=== PATIENT | female | born 1935 | race Caucasian/White ===

== ENCOUNTER 2018-12-29 15:02 | Inpatient (IN) | payer OTHER ==
[~2018-12-29] VITALS: Ht 152.4 cm; Wt 66.2 kg
[2018-12-29] MEDS ORDERED: SOD CHLORIDE 0.9% 0 ML IV ONE (16:30)
[2018-12-29] MEDS ORDERED: CALC-662 PO (17:02)
[2018-12-29] MEDS ORDERED: GABA100C14 PO (17:03)
[2018-12-29] MEDS ORDERED: AMLO5TAB4 PO (17:03)
[2018-12-29] MEDS ORDERED: METF500T24 PO (17:04)
[2018-12-29] MEDS ORDERED: LOSA100T15 PO (17:04)
[2018-12-29] MEDS ORDERED: SOD CHLORIDE 0.9% 1,000 ML IV SCH (17:15)
[2018-12-29] MEDS ORDERED: POTASSIUM CHLORIDE (SR) 20 MEQ TAB PO STA (17:22)
[2018-12-29] MEDS ORDERED: NACL 0.9% 3 ML SYG IV SCH (17:30)
[2018-12-29] MEDS ORDERED: ONDANSETRON 4 MG INJ IV PRN (17:30)
[2018-12-29] MEDS ORDERED: ACETAMINOPHEN 325 MG TAB PO PRN (17:30)
[2018-12-29] MEDS ORDERED: LIDOCAINE/MYLANTA 40 ML BTL PO ONE (17:30)
--- NOTE | 2018-12-29 17:40 | HP ---
Date/Time of Note Date/Time of Note DATE: 12/29/18 TIME: 17:40 Assessment/Plan VTE Prophylaxis Pharmacological prophylaxis: other Lines/Catheters IV Catheter Type (from Nrsg): Saline Lock Assessment/Plan Hospital Course Patient is a female with a past medical history significant for hypertension, diabetes mellitus and peripheral neuropathy who presents to [facility] after being sent by her outpatient physician for severe anemia. Patient states that she has had this burning sensation in her shoulders bilaterally as well as her stomach for approximately 8 months. Her primary care doctor diagnosed with peripheral neuropathy secondary to diabetes mellitus and is treating her with gabapentin for the symptoms. Patient states that the symptoms have improved a little bit but has still not fully resolved. Otherwise patient also states that for the past 8 months she has felt generally weak. As far as acute symptoms that are none, patient states that she has been feeling this current state for the past 8 months. Patient denies acute chest pain, shortness of breath, headache, abdominal pain, leg pain. But she does state that she has this burning sensation in her abdomen as well as her shoulders. Objective Physical exam General: Patient is laying in bed and answers questions appropriately Mentation: Patient is alert and oriented 4, Head: Normocephalic atraumatic Eyes: EOMI, pupils reactive to light Neck: Supple, nontender, midline Respiratory: Clear to auscultation bilaterally Cardiovascular: regular rate, no obvious murmurs Gastrointestinal: non-tender to palpation, bowel sounds heard. Neurological: Moves all extremities spontaneously Skin: No new skin lesions Assessment and plan Symptomatic anemia -Severe anemia, getting transfused in the ED -We will hydrate slightly as patient likely not eating very well due to generalized weakness, very mild -Iron panel, ferritin, reticulocyte pending -Patient states no black or bloody stool, however will obtain fecal occult, if positive will consult GI, patient has no history of colonoscopy -Patient's last blood work was done a long time ago, beyond 8 months so unsure when or what her last hemoglobin was, it would be nice to speak to her primary care physician however this is beyond office hours on a Tuesday night, will need to follow-up with patient's physician on Tuesday morning if available. -Monitor Hypertension -Continue home meds Diabetes mellitus -Insulin 1 house Shoulder and abdominal burning -Worked up by her primary care physician, on gabapentin, has been going on for the past 8 months, continue gabapentin for now,- -Patient states after starting gabapentin it has helped a little bit but has not relieved all the burning sensation Electrolyte derangement -Replete as needed Disposition -We will transfuse, monitor patient for possible GI bleed and discharge when safe. Anticipate a multi-day stay as we may or may not need to transfuse multiple times given severely low hemoglobin. Result Diagram: 12/29/18 1642 Results 24hrs Laboratory Tests Test 12/29/18 16:42 White Blood Count 5.5 Red Blood Count 3.29 L Hemoglobin 5.6 *L Hematocrit 21.2 L Mean Corpuscular Volume 64.4 L Mean Corpuscular Hemoglobin 17.0 L Mean Corpuscular Hemoglobin Concent 26.4 L Red Cell Distribution Width 21.0 H Platelet Count 253 Mean Platelet Volume 8.1 Immature Granulocytes % 0.400 Neutrophils % Lymphocytes % Monocytes % Eosinophils % Basophils % Nucleated Red Blood Cells % 0.0 Immature Granulocytes # 0.020 Neutrophils # Lymphocytes # Monocytes # Eosinophils # Basophils # Nucleated Red Blood Cells # Pathologist Review (Hematology) YES Prothrombin Time 13.3 Prothrombin Time Ratio 1.0 INR International Normalized Ratio 1.00 Activated Partial Thromboplast Time 24.7 Sodium Level 138 Potassium Level 3.4 L Chloride Level 98 Carbon Dioxide Level 30 Anion Gap 10 Blood Urea Nitrogen 13 Creatinine 0.60 Est Glomerular Filtrat Rate mL/min Glucose Level 107 Calcium Level 9.1 Iron Level < 10 L Total Iron Binding Capacity Pending Percent Iron Saturation Pending Total Bilirubin 0.4 Direct Bilirubin 0.00 Indirect Bilirubin 0.4 Aspartate Amino Transf (AST/SGOT) 26 Alanine Aminotransferase (ALT/SGPT) 31 Alkaline Phosphatase 71 Total Protein 7.6 Albumin 4.1 Globulin 3.50 H Albumin/Globulin Ratio 1.17 HPI/ROS Admit Date/Time Admit Date/Time PMH/Family/Social Past Medical History Medications Current Medications Sodium Chloride 1,000 ml @ 50 mls/hr Q20H IV ; Start 12/29/18 at 17:15; Stop 12/30/18 at 13:14; Status UNV IV Flush (NS 3 ml) 3 ml PER PROTOCOL IV ; Start 12/29/18 at 17:30; Status UNV Ondansetron HCl (Zofran Inj) 4 mg Q6H PRN IV NAUSEA/VOMITING; Start 12/29/18 at 17:30; Status UNV Acetaminophen (Tylenol Tab) 650 mg Q6H PRN PO .PAIN 1-3 OR TEMP; Start 12/29/18 at 17:30; Status UNV Acetaminophen/ Hydrocodone Bitart ([place] (5/325)) 1 tab Q6H PRN PO .PAIN 4-6; Start 12/29/18 at 17:30; Status UNV Amlodipine Besylate (Norvasc) 5 mg DAILY PO ; Start 12/30/18 at 09:00; Status UNV Gabapentin (Neurontin) 100 mg TID PO ; Start 12/29/18 at 21:00; Status UNV Losartan Potassium (Cozaar) 100 mg DAILY PO ; Start 12/30/18 at 09:00; Status UNV Coded Allergies: No Known Allergy (Unverified , 12/29/18) Social History Smoking Status: Never smoker Exam/Review of Systems Vital Signs Vitals Vital Signs Date Temp Pulse Resp B/P (MAP) Pulse Ox O2 O2 Flow FiO2 Time Delivery Rate 12/29/18 71 20 149/61 97 Room Air 16:23 (90) 12/29/18 98.7 15:09 RICHARD ABDULLAHI Dec 29, 2018 17:40
[2018-12-29] MEDS: INSULIN ASPART [NOVOLOG] 3 ML PEN SC SCH ×2 (18:00→22:35)
[2018-12-29] MEDS ORDERED: GLUCOSE GEL 15 GRAM TUBE BUCCAL PRN (18:00)
[2018-12-29] MEDS ORDERED: GLUCAGON 1 MG INJ IM PRN (18:00)
[2018-12-29] MEDS ORDERED: DEXTROSE 50% 50 ML SYRINGE IV PRN ×2 (18:00)
[2018-12-29] MEDS ORDERED: GLUCOSE GEL 15 GRAM TUBE PO PRN ×2 (18:00)
--- NOTE | 2018-12-29 18:17 | ERD ---
ER Documentation Chief Complaint Chief Complaint hgb 6.2 sent for blood transfusion HPI This is an 83-year-old female with a prior history of hypertension and diabetes, who presents for evaluation of anemia with a hemoglobin of 6.2. The patient has endorsed generalized weakness for about the last week, she was sent in from an outside clinic. Patient has not had any syncope, chest pain or shortness of breath. She denies any rectal or vaginal bleeding. Her symptoms are intermittent and not alleviated or aggravated by anything. ROS All systems reviewed and are negative except as per history of present illness. Medications Home Meds Reported Medications Metformin Hcl* (Metformin Hcl*) 500 Mg Tablet, 500 MG PO WITH BREAKFAST DINNE, #60 TAB 12/29/18 Losartan Potassium* (Losartan Potassium*) 100 Mg Tablet, 100 MG PO DAILY, TAB 12/29/18 Gabapentin* (Gabapentin*) 100 Mg Capsule, 100 MG PO TID, #90 CAP 12/29/18 Amlodipine Besylate* (Norvasc*) 5 Mg Tablet, 5 MG PO DAILY, TAB 12/29/18 Calcium Carbonate-Vitamin D3 (Calcium 500 + D Tablet) 1 Each Tablet, 1 TAB PO DAILY, TAB 12/29/18 Allergies Allergies: Coded Allergies: No Known Allergy (Unverified , 12/29/18) PMhx/Soc History of Surgery: No Anesthesia Reaction: No Hx Neurological Disorder: No Hx Respiratory Disorders: No Hx Cardiac Disorders: No Hx Psychiatric Problems: No Hx Miscellaneous Medical Probl: Yes (Hx anemia) Hx Alcohol Use: No Hx Substance Use: No Hx Tobacco Use: No Smoking Status: Never smoker Physical Exam Vitals Vital Signs Date Temp Pulse Resp B/P (MAP) Pulse Ox O2 O2 Flow FiO2 Time Delivery Rate 12/29/18 71 20 149/61 97 Room Air 16:23 (90) 12/29/18 98.7 78 20 161/70 96 15:09 (100) Physical Exam Const: Well-appearing, well-developed well-nourished. Head: Atraumatic Eyes: Normal Conjunctiva ENT: Normal External Ears, Nose and Mouth. Neck: Full range of motion. No meningismus. Resp: Clear to auscultation bilaterally Cardio: Regular rate and rhythm, no murmurs Abd: Soft, non tender, non distended. Normal bowel sounds Skin: No petechiae or rashes Back: No midline or flank tenderness Ext: No cyanosis, or edema Neur: Awake and alert Psych: Normal Mood and Affect Result Diagram: 12/30/18 0550 12/30/18 0550 Results 24 hrs Laboratory Tests Test 12/29/18 09:13 12/29/18 16:42 Urine Color YELLOW Urine Clarity CLOUDY Urine pH 9.0 Urine Specific [place] 1.008 Urine Ketones NEGATIVE mg/dL Urine Nitrite NEGATIVE mg/dL Urine Bilirubin NEGATIVE mg/dL Urine Urobilinogen NEGATIVE mg/dL Urine Leukocyte Esterase 2+ Andre/ul Urine Microscopic RBC 6 /HPF Urine Microscopic WBC 9 /HPF Urine Bacteria FEW /HPF Urine Hemoglobin NEGATIVE mg/dL Urine Glucose NEGATIVE mg/dL Urine Total Protein NEGATIVE mg/dl Stool Occult Blood NEGATIVE White Blood Count 5.5 10^3/ul Red Blood Count 3.29 10^6/ul Hemoglobin 5.6 g/dl Hematocrit 21.2 % Mean Corpuscular Volume 64.4 fl Mean Corpuscular Hemoglobin 17.0 pg Mean Corpuscular Hemoglobin Concent 26.4 g/dl Red Cell Distribution Width 21.0 % Platelet Count 253 10^3/UL Mean Platelet Volume 8.1 fl Immature Granulocytes % 0.400 % Neutrophils % % Segmented Neutrophils % (Manual) 50 % Lymphocytes % % Lymphocytes % (Manual) 35 % Reactive Lymphocytes % (Manual) 1 % Monocytes % % Monocytes % (Manual) 6 % Eosinophils % % Eosinophils % (Manual) 3 % Basophils % % Basophils % (Manual) 4 % Myelocytes % (Manual) 1 % Nucleated Red Blood Cells % 0.0 /100WBC Immature Granulocytes # 0.020 10^3/ul Neutrophils # 10^3/ul Lymphocytes (Manual) 1.9 10^3/ul Lymphocytes # 10^3/ul Reactive Lymphocytes # 0.0 10^3/ul Monocytes # 10^3/ul Monocytes # (Manual) 0.3 10^3/ul Eosinophils # 10^3/ul Basophils # 10^3/ul Basophils # (Manual) 0.2 10^3/ul Myelocytes # 0.0 10^3/ul Nucleated Red Blood Cells # 10^3/ul Pathologist Review (Hematology) YES Platelet Estimate NORMAL Giant Platelets 2 % Poikilocytosis 2+ Anisocytosis 2+ Microcytosis 2+ Absolute Reticulocyte Count 0.091 X10^6 Percent Reticulocyte Count 2.8 % Prothrombin Time 13.3 Sec Prothrombin Time Ratio 1.0 INR International Normalized Ratio 1.00 Activated Partial Thromboplast Time 24.7 Sec Sodium Level 138 mmol/L Potassium Level 3.4 mmol/L Chloride Level 98 mmol/L Carbon Dioxide Level 30 mmol/L Anion Gap 10 Blood Urea Nitrogen 13 mg/dl Creatinine 0.60 mg/dl Est Glomerular Filtrat Rate mL/min mL/min Glucose Level 107 mg/dl Calcium Level 9.1 mg/dl Iron Level < 10 ug/dl Total Iron Binding Capacity 522 ug/dl Percent Iron Saturation % SAT Ferritin 7.0 ng/ml Total Bilirubin 0.4 mg/dl Direct Bilirubin 0.00 mg/dl Indirect Bilirubin 0.4 mg/dl Aspartate Amino Transf (AST/SGOT) 26 IU/L Alanine Aminotransferase (ALT/SGPT) 31 IU/L Alkaline Phosphatase 71 IU/L Troponin I < 0.012 ng/ml Total Protein 7.6 g/dl Albumin 4.1 g/dl Globulin 3.50 g/dl Albumin/Globulin Ratio 1.17 Current Medications Medications Dose Sig/Lenin Start Time Status Last (Trade) Ordered Route PRN Stop Time Admin Dose Reason Admin Sodium 0 ml @ 0 Q0M ONCE 12/29/18 DC Chloride mls/hr IV 16:30 12/29/18 16:54 Sodium 1,000 ml @ Q20H IV 12/29/18 DC 12/30/18 Chloride 50 mls/hr 17:15 04:11 12/30/18 13:14 IV Flush 3 ml PER 12/29/18 (NS 3 ml) PROTOCOL IV 17:30 Ondansetron 4 mg Q6H PRN 12/29/18 HCl (Zofran IV 17:30 Inj) NAUSEA/VOMITI NG 650 mg Q6H PRN 12/29/18 12/30/18 Acetaminophen PO .PAIN 1-3 17:30 08:46 (Tylenol OR TEMP Tab) 1 tab Q6H PRN 12/29/18 12/29/18 Acetaminophen PO .PAIN 4-6 17:30 20:35 / Hydrocodone Bitart ([place] (5/325)) 40 ml ONCE ONCE 12/29/18 DC 12/29/18 Miscellaneous PO 17:30 19:55 Medication 12/29/18 17:31 (Gi Cocktail (2)) Potassium 40 meq ONCE STAT 12/29/18 DC 12/29/18 Chloride PO 17:22 19:55 (Klor-Con 20) 12/29/18 17:29 Procedures/MDM This is a 83-year-old female presents for evaluation of severe anemia. On exam, patient had no cardiopulmonary symptoms, her hemoglobin was noted to be 5.6, that she required emergent transfusion. She otherwise had no active bleeding, and no other complaints. Lab work did not show any significant leukocytosis, and any evidence of anion gap acidosis. Accepting Care Team: Current data and ongoing care discussed. Primary: Louis Outstanding Data: none EKG: Rate/Rhythm: Normal Sinus Rhythm QRS, ST, T-waves: No changes consistent w/ acute ischemia Impression: No evidence of ischemia or arrhythmia Departure Diagnosis: Primary Impression: Anemia Anemia type: unspecified type Qualified Codes: D64.9 - Anemia, unspecified Condition: Stable RICHARD RICO MD Dec 29, 2018 18:17
[2018-12-29] MEDS: PANTOPRAZOLE (EC) 40 MG TAB PO SCH (19:55)
[2018-12-29] MEDS: HYDROCODONE/APAP (5/325) TAB PO PRN (20:35)
[2018-12-29 21:45] VITALS: BP 176/84; PULSE 73; RESP 18
[2018-12-29] MEDS ORDERED: hydrALAzine 20 MG INJ IV ONE (22:30)
[2018-12-29] MEDS: GABAPENTIN 100 MG CAP PO SCH (22:47)
[2018-12-29] MEDS: SUCRALFATE (100 MG/ML) 10ML CUP PO SCH (22:47)
[2018-12-29 22:51] VITALS: Ht 152.4 cm; Wt 66.2 kg
[2018-12-30 02:00] VITALS: BP_SYST 103; BP_SYST 149; BP_DIAS 57; BP_DIAS 67; PULSE 72; PULSE 75; RESP 18
[2018-12-30] MEDS: ACCU-CHEK XX SCH (02:00)
[2018-12-30] MEDS: PANTOPRAZOLE (EC) 40 MG TAB PO SCH ×2 (05:08→17:28)
[2018-12-30 07:52] VITALS: BP 171/74; PULSE 68; RESP 18
[2018-12-30] MEDS: INSULIN ASPART [NOVOLOG] 3 ML PEN SC SCH ×4 (08:39→20:33)
[2018-12-30] MEDS: SUCRALFATE (100 MG/ML) 10ML CUP PO SCH ×4 (08:43→20:33)
[2018-12-30] MEDS: GABAPENTIN 100 MG CAP PO SCH ×3 (08:45→20:33)
[2018-12-30] MEDS: LOSARTAN 50 MG TAB PO SCH (08:45)
[2018-12-30] MEDS ORDERED: AMLODIPINE 5 MG TAB PO SCH (09:00)
[2018-12-30 13:12] VITALS: BP 176/86; PULSE 62; RESP 18
[2018-12-30] MEDS: CIPROFLOXACIN 400MG/D5W 200 ML IVPB SCH ×2 (13:52→20:32)
[2018-12-30] MEDS ORDERED: AMLODIPINE 5 MG TAB PO ONE (14:00)
--- NOTE | 2018-12-30 14:03 | PN ---
Date/Time of Note Date/Time of Note DATE: 12/30/18 TIME: 13:54 Objective Vitals Vital Signs Date Temp Pulse Resp B/P (MAP) Pulse Ox O2 O2 Flow FiO2 Time Delivery Rate 12/30/18 97.6 62 18 176/86 96 Room Air 13:12 (116) Intake and Output 12/29/18 12/29/18 12/30/18 1515:00 23:00 07:00 IntakeIntake Total 900 ml BalanceBalance 900 ml Results Result Diagram: 12/30/18 0550 12/30/18 0550 Medications Medications Current Medications IV Flush (NS 3 ml) 3 ml PER PROTOCOL IV ; Start 12/29/18 at 17:30 Ondansetron HCl (Zofran Inj) 4 mg Q6H PRN IV NAUSEA/VOMITING; Start 12/29/18 at 17:30 Acetaminophen (Tylenol Tab) 650 mg Q6H PRN PO .PAIN 1-3 OR TEMP Last administered on 12/30/18 08:46; Admin Dose 650 MG; Start 12/29/18 at 17:30 Acetaminophen/ Hydrocodone Bitart ([place] (5/325)) 1 tab Q6H PRN PO .PAIN 4-6 Last administered on 12/29/18 20:35; Admin Dose 1 TAB; Start 12/29/18 at 17:30 Amlodipine Besylate (Norvasc) 5 mg DAILY PO Last administered on 12/30/18 08:46; Admin Dose 5 MG; Start 12/30/18 at 09:00 Gabapentin (Neurontin) 100 mg TID PO Last administered on 12/30/18 12:54; Admin Dose 100 MG; Start 12/29/18 at 21:00 Losartan Potassium (Cozaar) 100 mg DAILY PO Last administered on 12/30/18 08:45; Admin Dose 100 MG; Start 12/30/18 at 09:00 Pantoprazole (Protonix Tab) 40 mg BID@06,18 PO Last administered on 12/30/18 05:08; Admin Dose 40 MG; Start 12/29/18 at 18:00 Sucralfate (Carafate Susp) 1 gm QID PO Last administered on 12/30/18 12:54; Admin Dose 1 GM; Start 12/29/18 at 21:00 Diagnostic Test (Pha) (Accu-Chek) 1 ea 02 XX ; Start 12/30/18 at 02:00 Insulin Aspart (Novolog Insulin Pen) NOVOLOG *MILD* ALGORITHM WITH MEALS BEDTIME SC Last administered on 12/30/18at 08:39; Admin Dose 1 UNIT; Start 12/29/18 at 18:00 Miscellaneous Information 1 ea NOTE XX ; Start 12/29/18 at 18:00 Glucose (Glutose) 15 gm Q15M PRN PO DECREASED GLUCOSE; Start 12/29/18 at 18:00 Glucose (Glutose) 22.5 gm Q15M PRN PO DECREASED GLUCOSE; Start 12/29/18 at 18:00 Dextrose (D50w Syringe) 25 ml Q15M PRN IV DECREASED GLUCOSE; Start 12/29/18 at 18:00 Dextrose (D50w Syringe) 50 ml Q15M PRN IV DECREASED GLUCOSE; Start 12/29/18 at 18:00 Glucagon (Glucagen) 1 mg Q15M PRN IM DECREASED GLUCOSE; Start 12/29/18 at 18:00 Glucose (Glutose) 15 gm Q15M PRN BUCCAL DECREASED GLUCOSE; Start 12/29/18 at 18:00 Influenza Virus Vaccine Quadrival (Fluzone) 0.5 ml ONCE ONCE IM* ; Start 12/31/18 at 10:00; Stop 12/31/18 at 10:01 Ferric Sodium Gluconate Complex 125 mg/Sodium Chloride 100 ml @ 100 mls/hr ONCE ONCE IVPB ; Start 12/30/18 at 14:30; Stop 12/30/18 at 15:29 Ciprofloxacin/ Dextrose 200 ml @ 200 mls/hr Q12 IVPB Last administered on 12/30/18at 13:52; Admin Dose 200 MLS/HR; Start 12/30/18 at 13:30 VTE Prophylaxis Risk score (from Nsg)>0 risk: 5 SCD applied (from Nsg): Yes Lines/Catheters IV Catheter Type: Patino in Place: No Assessment/Plan Hospital Course Subjective Patient feeling much better than yesterday, vague abdominal and bilateral shoulder pain that is chronic is still present mildly Objective Physical exam General: Patient is laying in bed and answers questions appropriately Mentation: Patient is alert and oriented 4, Head: Normocephalic atraumatic Eyes: EOMI, pupils reactive to light Neck: Supple, nontender, midline Respiratory: Clear to auscultation bilaterally Cardiovascular: regular rate, no obvious murmurs Gastrointestinal: non-tender to palpation, bowel sounds heard. Neurological: Moves all extremities spontaneously Skin: No new skin lesions Assessment and plan Symptomatic anemia -Status post 2 units transfused -Fecal occult is negative, hold off on GI consultation -Iron studies and ferritin are indicative of severe iron deficiency anemia, given the patient got 2 units in the ED, will give 1x dose of IV iron as well as she was so low. Hypertension -Continue home meds -As needed medication, also changing dose of amlodipine for elevated blood pressure Diabetes mellitus -Insulin while house Questionable UTI -Patient has vague abdominal symptoms of pain with positive UA, will treat UTI, Cipro for now Shoulder and abdominal burning -Worked up by her primary care physician, on gabapentin, has been going on for the past 8 months, continue gabapentin for now,- -Patient states after starting gabapentin it has helped a little bit but has not relieved all the burning sensation Electrolyte derangement -Replete as needed Disposition -We will transfuse, monitor patient for possible GI bleed and discharge when safe. Anticipate a multi-day stay as we may or may not need to transfuse multiple times given severely low hemoglobin. RICHARD ABDULLAHI Dec 30, 2018 14:03
[2018-12-30] MEDS ORDERED: SOD FERRIC GLUC COMPLX 125 MG in SOD CHLORIDE 0.9% 100 ML IVPB ONE (14:30)
[2018-12-30] MEDS: hydrALAzine 20 MG INJ IV PRN (18:50)
[2018-12-30 20:30] VITALS: BP 179/74; PULSE 86; RESP 18
[2018-12-31] MEDS: ACCU-CHEK XX SCH (02:00)
[2018-12-31 02:01] VITALS: BP 122/58; PULSE 71; RESP 16
[2018-12-31] MEDS: PANTOPRAZOLE (EC) 40 MG TAB PO SCH ×2 (05:47→17:47)
[2018-12-31] MEDS: INSULIN ASPART [NOVOLOG] 3 ML PEN SC SCH ×4 (08:00→20:10)
[2018-12-31 08:06] VITALS: BP 139/63; PULSE 68; RESP 15
[2018-12-31] MEDS: SUCRALFATE (100 MG/ML) 10ML CUP PO SCH ×4 (08:22→22:27)
[2018-12-31] MEDS: LOSARTAN 50 MG TAB PO SCH (08:22)
[2018-12-31] MEDS: CIPROFLOXACIN 400MG/D5W 200 ML IVPB SCH (08:22)
[2018-12-31] MEDS: GABAPENTIN 100 MG CAP PO SCH ×3 (08:22→20:06)
[2018-12-31] MEDS: AMLODIPINE 10 MG TAB PO SCH (08:23)
--- NOTE | 2018-12-31 11:20 | PN ---
Date/Time of Note Date/Time of Note DATE: 12/31/18 TIME: 11:18 Objective Vitals Vital Signs Date Temp Pulse Resp B/P (MAP) Pulse Ox O2 O2 Flow FiO2 Time Delivery Rate 12/31/18 98.3 68 15 139/63 96 08:06 (88) 12/30/18 Room Air 20:30 Intake and Output 12/30/18 12/30/18 12/31/18 1515:00 23:00 07:00 IntakeIntake Total 1360 ml 1700 ml OutputOutput Total 500 ml BalanceBalance 1360 ml 1200 ml Results Result Diagram: 12/31/1847 12/31/18546 Medications Medications Current Medications IV Flush (NS 3 ml) 3 ml PER PROTOCOL IV ; Start 12/29/18 at 17:30 Ondansetron HCl (Zofran Inj) 4 mg Q6H PRN IV NAUSEA/VOMITING; Start 12/29/18 at 17:30 Acetaminophen (Tylenol Tab) 650 mg Q6H PRN PO .PAIN 1-3 OR TEMP Last administered on 12/30/18at 08:46; Admin Dose 650 MG; Start 12/29/18 at 17:30 Acetaminophen/ Hydrocodone Bitart ([place] (5/325)) 1 tab Q6H PRN PO .PAIN 4-6 Last administered on 12/29/18at 20:35; Admin Dose 1 TAB; Start 12/29/18 at 17:30 Gabapentin (Neurontin) 100 mg TID PO Last administered on 12/31/18at 08:22; Admin Dose 100 MG; Start 12/29/18 at 21:00 Losartan Potassium (Cozaar) 100 mg DAILY PO Last administered on 12/31/18at 08:22; Admin Dose 100 MG; Start 12/30/18 at 09:00 Pantoprazole (Protonix Tab) 40 mg BID@06,18 PO Last administered on 12/31/18at 05:47; Admin Dose 40 MG; Start 12/29/18 at 18:00 Sucralfate (Carafate Susp) 1 gm QID PO Last administered on 12/31/18 08:22; Admin Dose 1 GM; Start 12/29/18 at 21:00 Diagnostic Test (Pha) (Accu-Chek) 1 ea 02 XX ; Start 12/30/18 at 02:00 Insulin Aspart (Novolog Insulin Pen) NOVOLOG *MILD* ALGORITHM WITH MEALS BEDTIME SC Last administered on 12/30/18at 17:29; Admin Dose 2 UNIT; Start 12/29/18 at 18:00 Miscellaneous Information 1 ea NOTE XX ; Start 12/29/18 at 18:00 Glucose (Glutose) 15 gm Q15M PRN PO DECREASED GLUCOSE; Start 12/29/18 at 18:00 Glucose (Glutose) 22.5 gm Q15M PRN PO DECREASED GLUCOSE; Start 12/29/18 at 18: 00 Dextrose (D50w Syringe) 25 ml Q15M PRN IV DECREASED GLUCOSE; Start 12/29/18 at 18:00 Dextrose (D50w Syringe) 50 ml Q15M PRN IV DECREASED GLUCOSE; Start 12/29/18 at 18:00 Glucagon (Glucagen) 1 mg Q15M PRN IM DECREASED GLUCOSE; Start 12/29/18 at 18:00 Glucose (Glutose) 15 gm Q15M PRN BUCCAL DECREASED GLUCOSE; Start 12/29/18 at 18:00 Ciprofloxacin/ Dextrose 200 ml @ 200 mls/hr Q12 IVPB Last administered on 12/31/18at 08:22; Admin Dose 200 MLS/HR; Start 12/30/18 at 13:30 Amlodipine Besylate (Norvasc) 10 mg DAILY PO Last administered on 12/31/18at 08:23; Admin Dose 10 MG; Start 12/31/18 at 09:00 Hydralazine HCl (Apresoline) 10 mg Q4H PRN IV sbp >160 Last administered on 12/30/18at 18:50; Admin Dose 10 MG; Start 12/30/18 at 14:00 VTE Prophylaxis Risk score (from Nsg)>0 risk: 3 SCD applied (from Nsg): Yes Pharmacological prophylaxis: other Lines/Catheters IV Catheter Type: Patino in Place: No Assessment/Plan Hospital Course Subjective Patient feeling even better than yesterday, vague abdominal and bilateral shoulder pain that is chronic is still present mildly but patient states it comes and goes Objective Physical exam General: Patient is laying in bed and answers questions appropriately Mentation: Patient is alert and oriented 4, Head: Normocephalic atraumatic Eyes: EOMI, pupils reactive to light Neck: Supple, nontender, midline Respiratory: Clear to auscultation bilaterally Cardiovascular: regular rate, no obvious murmurs Gastrointestinal: non-tender to palpation, bowel sounds heard. Neurological: Moves all extremities spontaneously Skin: No new skin lesions Assessment and plan Symptomatic anemia -Status post 2 units transfused -Fecal occult is negative, hold off on GI consultation -Iron studies and ferritin are indicative of severe iron deficiency anemia, given the patient got 2 units in the ED, also got 1 dose IV iron, patient will need to be on oral iron supplementation at discharge Hypertension -Continue home meds -As needed medication, also changing dose of amlodipine for elevated blood pressure Diabetes mellitus -Insulin while house Questionable UTI -Patient has vague abdominal symptoms of pain with positive UA, will treat UTI, Cipro for now Shoulder and abdominal burning -Worked up by her primary care physician, on gabapentin, has been going on for the past 8 months, continue gabapentin for now,- -Patient states after starting gabapentin it has helped a little bit but has not relieved all the burning sensation Electrolyte derangement -Replete as needed Disposition -Patient doing well, monitor for 1 more day for stable hemoglobin before discharge. RICHARD ABDULLAHI Dec 31, 2018 11:19
[2018-12-31] MEDS: hydrALAzine 20 MG INJ IV PRN (16:40)
[2018-12-31 16:42] VITALS: BP 171/76; PULSE 65; RESP 16
[2018-12-31] MEDS: CIPROFLOXACIN 500 MG TAB PO SCH (17:47)
[2018-12-31 18:48] VITALS: BP 139/63; PULSE 78
[2018-12-31 19:53] VITALS: BP 124/55; PULSE 72; RESP 16
[2018-12-31] MEDS: HYDROCODONE/APAP (5/325) TAB PO PRN (20:06)
[2019-01-01 01:27] VITALS: BP 111/55; PULSE 66; RESP 16
[2019-01-01] MEDS: ACCU-CHEK XX SCH (02:00)
[2019-01-01] MEDS: CIPROFLOXACIN 500 MG TAB PO SCH ×2 (05:40→17:39)
[2019-01-01] MEDS: PANTOPRAZOLE (EC) 40 MG TAB PO SCH ×2 (05:40→17:39)
[2019-01-01 07:57] VITALS: BP 156/99; PULSE 66; RESP 16
[2019-01-01] MEDS: INSULIN ASPART [NOVOLOG] 3 ML PEN SC SCH ×4 (08:00→20:27)
[2019-01-01] MEDS: HYDROCODONE/APAP (5/325) TAB PO PRN (08:03)
[2019-01-01] MEDS: GABAPENTIN 100 MG CAP PO SCH ×2 (08:03→13:01)
[2019-01-01] MEDS: AMLODIPINE 10 MG TAB PO SCH (08:03)
[2019-01-01] MEDS: LOSARTAN 50 MG TAB PO SCH (08:04)
[2019-01-01] MEDS: SUCRALFATE 1 GM TAB PO SCH ×4 (08:51→20:28)
[2019-01-01 14:22] VITALS: BP 134/61; PULSE 60; RESP 16
--- NOTE | 2019-01-01 15:23 | PN ---
Date/Time of Note Date/Time of Note DATE: 01/01/19 TIME: 15:19 Assessment/Plan VTE Prophylaxis Risk score (from Ns)>0 risk: 3 SCD applied (from Ns): Yes Pharmacological prophylaxis: NA/contraindicated Pharm contraindication: bleeding Lines/Catheters [facility]from [facility] Peripheral IV Urinary Cath still in place: No Assessment/Plan Assessment/Plan 1. Symptomatic iron deficiency anemia- improving - Hgb stable and will require iron supplement upon discharge. no need for transfusion at this time - Fecal occult is negative - iron studies noted 2. Hypertension - Continue home meds 3. Diabetes mellitus - Insulin while house 4. Questionable UTI - UA noted and will continue short course of cipro 5. Shoulder and abdominal burning - Worked up by her primary care physician, on gabapentin, has been going on for the past 8 months, continue gabapentin for now, Will increase dose and monitor for tolerance 6. Disposition - PT/OT evaluation given discomfort of LE. Will adjust dose of gabapentin and monitor for tolerance Result Diagram: 01/01/19 0503 01/01/19 0503 Results 24hrs Laboratory Tests Test 12/31/18 17:39 12/31/18 20:10 01/01/19 05:03 01/01/19 07:59 Bedside Glucose 130 179 122 White Blood Count 6.5 Red Blood Count 4.56 Hemoglobin 8.7 L Hematocrit 31.2 L Mean Corpuscular 68.4 L Volume Mean Corpuscular 19.1 L Hemoglobin Mean Corpuscular 27.9 L Hemoglobin Concent Red Cell Distribution 24.2 H Width Platelet Count 254 Mean Platelet Volume 8.2 Immature Granulocytes 0.800 H % Neutrophils % 52.5 Lymphocytes % 29.8 Monocytes % 8.0 Eosinophils % 7.8 H Basophils % 1.1 Nucleated Red Blood 0.0 Cells % Immature Granulocytes 0.050 H # Neutrophils # 3.4 Lymphocytes # 2.0 Monocytes # 0.5 Eosinophils # 0.5 Basophils # 0.1 Nucleated Red Blood 0.0 Cells # Sodium Level 139 Potassium Level 4.2 Chloride Level 108 Carbon Dioxide Level 21 Anion Gap 10 Blood Urea Nitrogen 15 Creatinine 0.68 Est Glomerular Filtrat Rate mL/min Glucose Level 116 Calcium Level 9.4 Phosphorus Level 4.0 Magnesium Level 2.1 Test 01/01/19 12:45 Bedside Glucose 128 Subjective 24 Hr Interval Summary Free Text/Dictation Patient still complaining of lower leg pain that starts from hips and radiates down legs. Has history of neuropathy and pain started prior to discharge. Exam/Review of Systems Exam Vitals Vital Signs Date Temp Pulse Resp B/P (MAP) Pulse Ox O2 O2 Flow FiO2 Time Delivery Rate 01/01/19 98.7 60 16 134/61 97 14:22 (85) 12/30/18 Room Air 20:30 Intake and Output 12/31/18 12/31/18 01/01/19 1515:00 23:00 07:00 IntakeIntake Total 1400 ml 580 ml 100 ml BalanceBalance 1400 ml 580 ml 100 ml Exam General: Patient is laying in bed and answers questions appropriately Eyes: EOMI, pupils reactive to light Neck: Supple, nontender, midline Respiratory: Clear to auscultation bilaterally. no wheezing Cardiovascular: regular rate and rhythm, no obvious murmurs Gastrointestinal: soft, non-tender to palpation, bowel sounds heard. Ext: Moves all extremities spontaneously. discomfort with palpation of lower extremities Skin: No new skin lesions Results Results 24hrs Laboratory Tests Test 12/31/18 17:39 12/31/18 20:10 01/01/19 05:03 01/01/19 07:59 Bedside Glucose 130 179 122 White Blood Count 6.5 Red Blood Count 4.56 Hemoglobin 8.7 L Hematocrit 31.2 L Mean Corpuscular 68.4 L Volume Mean Corpuscular 19.1 L Hemoglobin Mean Corpuscular 27.9 L Hemoglobin Concent Red Cell Distribution 24.2 H Width Platelet Count 254 Mean Platelet Volume 8.2 Immature Granulocytes 0.800 H % Neutrophils % 52.5 Lymphocytes % 29.8 Monocytes % 8.0 Eosinophils % 7.8 H Basophils % 1.1 Nucleated Red Blood 0.0 Cells % Immature Granulocytes 0.050 H # Neutrophils # 3.4 Lymphocytes # 2.0 Monocytes # 0.5 Eosinophils # 0.5 Basophils # 0.1 Nucleated Red Blood 0.0 Cells # Sodium Level 139 Potassium Level 4.2 Chloride Level 108 Carbon Dioxide Level 21 Anion Gap 10 Blood Urea Nitrogen 15 Creatinine 0.68 Est Glomerular Filtrat Rate mL/min Glucose Level 116 Calcium Level 9.4 Phosphorus Level 4.0 Magnesium Level 2.1 Test 01/01/19 12:45 Bedside Glucose 128 Medications Medication Current Medications IV Flush (NS 3 ml) 3 ml PER PROTOCOL IV ; Start 12/29/18 at 17:30 Ondansetron HCl (Zofran Inj) 4 mg Q6H PRN IV NAUSEA/VOMITING; Start 12/29/18 at 17:30 Acetaminophen (Tylenol Tab) 650 mg Q6H PRN PO .PAIN 1-3 OR TEMP Last administered on 12/30/18at 08:46; Admin Dose 650 MG; Start 12/29/18 at 17:30 Acetaminophen/ Hydrocodone Bitart ([place] (5/325)) 1 tab Q6H PRN PO .PAIN 4-6 Last administered on 01/01/19at 08:03; Admin Dose 1 TAB; Start 12/29/18 at 17:30 Gabapentin (Neurontin) 100 mg TID PO Last administered on 01/01/19at 13:01; Admin Dose 100 MG; Start 12/29/18 at 21:00 Losartan Potassium (Cozaar) 100 mg DAILY PO Last administered on 01/01/19at 08:04; Admin Dose 100 MG; Start 12/30/18 at 09:00 Pantoprazole (Protonix Tab) 40 mg BID@06,18 PO Last administered on 01/01/19at 05:40; Admin Dose 40 MG; Start 12/29/18 at 18:00 Diagnostic Test (Pha) (Accu-Chek) 1 ea 02 XX ; Start 12/30/18 at 02:00 Insulin Aspart (Novolog Insulin Pen) NOVOLOG *MILD* ALGORITHM WITH MEALS BEDTIME SC Last administered on 12/31/18at 12:44; Admin Dose 1 UNIT; Start 12/29/18 at 18:00 Miscellaneous Information 1 ea NOTE XX ; Start 12/29/18 at 18:00 Glucose (Glutose) 15 gm Q15M PRN PO DECREASED GLUCOSE; Start 12/29/18 at 18:00 Glucose (Glutose) 22.5 gm Q15M PRN PO DECREASED GLUCOSE; Start 12/29/18 at 18:0 0 Dextrose (D50w Syringe) 25 ml Q15M PRN IV DECREASED GLUCOSE; Start 12/29/18 at 18:00 Dextrose (D50w Syringe) 50 ml Q15M PRN IV DECREASED GLUCOSE; Start 12/29/18 at 18:00 Glucagon (Glucagen) 1 mg Q15M PRN IM DECREASED GLUCOSE; Start 12/29/18 at 18:00 Glucose (Glutose) 15 gm Q15M PRN BUCCAL DECREASED GLUCOSE; Start 12/29/18 at 18:00 Amlodipine Besylate (Norvasc) 10 mg DAILY PO Last administered on 01/01/19at 08:03; Admin Dose 10 MG; Start 12/31/18 at 09:00 Hydralazine HCl (Apresoline) 10 mg Q4H PRN IV sbp >160 Last administered on 12/31/18at 16:40; Admin Dose 10 MG; Start 12/30/18 at 14:00 Ciprofloxacin (Cipro) 500 mg BID@06,18 PO Last administered on 01/01/19at 05:40; Admin Dose 500 MG; Start 12/31/18 at 18:00 Sucralfate (Carafate) 1 gm QID PO Last administered on 01/01/19at 13:01; Admin Dose 1 GM; Start 01/01/19 at 09:00 SHALINI WALTERS MD Jan 01, 2019 15:23
[2019-01-01 19:38] VITALS: BP 147/65; PULSE 67; RESP 18
[2019-01-01] MEDS: GABAPENTIN 300 MG CAP PO SCH (20:28)
[2019-01-02 01:22] VITALS: BP 127/71; PULSE 67; RESP 18
[2019-01-02] MEDS: ACCU-CHEK XX SCH (02:00)
[2019-01-02] MEDS: PANTOPRAZOLE (EC) 40 MG TAB PO SCH ×2 (05:49→17:27)
[2019-01-02] MEDS: CIPROFLOXACIN 500 MG TAB PO SCH ×2 (05:49→19:00)
[2019-01-02 07:45] VITALS: BP 136/62; PULSE 67; RESP 16
[2019-01-02] MEDS: INSULIN ASPART [NOVOLOG] 3 ML PEN SC SCH ×4 (08:00→20:32)
[2019-01-02] MEDS: AMLODIPINE 10 MG TAB PO SCH (08:20)
[2019-01-02] MEDS: SUCRALFATE 1 GM TAB PO SCH ×4 (08:20→20:31)
[2019-01-02] MEDS: GABAPENTIN 300 MG CAP PO SCH ×3 (08:20→20:31)
[2019-01-02] MEDS: LOSARTAN 50 MG TAB PO SCH (08:21)
--- NOTE | 2019-01-02 08:41 | PN ---
Date/Time of Note Date/Time of Note DATE: 01/02/19 TIME: 08:41 Assessment/Plan VTE Prophylaxis Risk score (from Ns)>0 risk: 3 SCD applied (from Ns): Yes Pharmacological prophylaxis: NA/contraindicated Pharm contraindication: anticoag not tolerated Lines/Catheters IV Catheter Type (from Nrsg): Saline Lock Urinary Cath still in place: No Assessment/Plan Assessment/Plan 1. Symptomatic iron deficiency anemia- stable - Hgb stable and will require iron supplement upon discharge. no need for transfusion at this time - Fecal occult is negative - iron studies noted 2. Hypertension - Continue home meds 3. Diabetes mellitus - Insulin while house 4. Questionable UTI - UA noted and will continue short course of cipro 5. Shoulder and abdominal burning - Worked up by her primary care physician, on gabapentin. Increased gabapentin to 300mg and will monitor for improvement. 6. Disposition - PT/OT evaluation given discomfort of LE. Will monitor for improvement in leg pain and when experiencing no further issues with ambulation. will d/c home. Result Diagram: 01/01/19 0503 01/01/19 0503 Results 24hrs Laboratory Tests Test 01/01/19 12:45 01/01/19 17:36 01/01/19 20:26 01/02/19 08:17 Bedside Glucose 128 133 180 132 Subjective 24 Hr Interval Summary Free Text/Dictation Patient states she still having pain in lower extremities and discussed change in gabapentin dose. No acute overnight events. Exam/Review of Systems Exam Vitals Vital Signs Date Temp Pulse Resp B/P (MAP) Pulse Ox O2 O2 Flow FiO2 Time Delivery Rate 01/02/19 98.0 67 16 136/62 96 07:45 (86) 12/30/18 Room Air 20:30 Intake and Output 01/01/19 01/01/19 01/02/19 1515:00 23:00 07:00 IntakeIntake Total 2080 ml 1040 ml BalanceBalance 2080 ml 1040 ml Exam General: Patient is sitting in chair at bedside and answers questions appropriately Neck: Supple, nontender, midline Respiratory: Clear to auscultation bilaterally. no wheezing Cardiovascular: regular rate and rhythm, no obvious murmurs Gastrointestinal: soft, non-tender to palpation, bowel sounds heard. Ext: Moves all extremities spontaneously. mild discomfort with palpation of lowe r extremities Skin: No new skin lesions Results Results 24hrs Laboratory Tests Test 01/01/19 12:45 01/01/19 17:36 01/01/19 20:26 01/02/19 08:17 Bedside Glucose 128 133 180 132 Medications Medication Current Medications IV Flush (NS 3 ml) 3 ml PER PROTOCOL IV ; Start 12/29/18 at 17:30 Ondansetron HCl (Zofran Inj) 4 mg Q6H PRN IV NAUSEA/VOMITING; Start 12/29/18 at 17:30 Acetaminophen (Tylenol Tab) 650 mg Q6H PRN PO .PAIN 1-3 OR TEMP Last administered on 12/30/18at 08:46; Admin Dose 650 MG; Start 12/29/18 at 17:30 Acetaminophen/ Hydrocodone Bitart ([place] (5/325)) 1 tab Q6H PRN PO .PAIN 4-6 Last administered on 01/01/19at 08:03; Admin Dose 1 TAB; Start 12/29/18 at 17:30 Losartan Potassium (Cozaar) 100 mg DAILY PO Last administered on 01/02/19at 08:21; Admin Dose 100 MG; Start 12/30/18 at 09:00 Pantoprazole (Protonix Tab) 40 mg BID@06,18 PO Last administered on 01/02/19at 05:49; Admin Dose 40 MG; Start 12/29/18 at 18:00 Diagnostic Test (Pha) (Accu-Chek) 1 ea 02 XX ; Start 12/30/18 at 02:00 Insulin Aspart (Novolog Insulin Pen) NOVOLOG *MILD* ALGORITHM WITH MEALS BEDTIME SC Last administered on 12/31/18at 12:44; Admin Dose 1 UNIT; Start 12/29/18 at 18:00 Miscellaneous Information 1 ea NOTE XX ; Start 12/29/18 at 18:00 Glucose (Glutose) 15 gm Q15M PRN PO DECREASED GLUCOSE; Start 12/29/18 at 18:00 Glucose (Glutose) 22.5 gm Q15M PRN PO DECREASED GLUCOSE; Start 12/29/18 at 18:00 Dextrose (D50w Syringe) 25 ml Q15M PRN IV DECREASED GLUCOSE; Start 12/29/18 at 18:00 Dextrose (D50w Syringe) 50 ml Q15M PRN IV DECREASED GLUCOSE; Start 12/29/18 at 18:00 Glucagon (Glucagen) 1 mg Q15M PRN IM DECREASED GLUCOSE; Start 12/29/18 at 18:00 Glucose (Glutose) 15 gm Q15M PRN BUCCAL DECREASED GLUCOSE; Start 12/29/18 at 18:00 Amlodipine Besylate (Norvasc) 10 mg DAILY PO Last administered on 01/02/19 08:20; Admin Dose 10 MG; Start 12/31/18 at 09:00 Hydralazine HCl (Apresoline) 10 mg Q4H PRN IV sbp >160 Last administered on 12/31/18at 16:40; Admin Dose 10 MG; Start 12/30/18 at 14:00 Ciprofloxacin (Cipro) 500 mg BID@,18 PO Last administered on 01/02/19at 05:49; Admin Dose 500 MG; Start 12/31/18 at 18:00 Sucralfate (Carafate) 1 gm QID PO Last administered on 01/02/19 08:20; Admin Dose 1 GM; Start 01/01/19 at 09:00 Gabapentin (Neurontin) 300 mg TID PO Last administered on 01/02/19 08:20; Admin Dose 300 MG; Start 01/01/19 at 21:00 SHALINI WALTERS MD Jan 02, 2019 08:41
[2019-01-02 14:06] VITALS: BP_SYST 166; PULSE 75; RESP 16
[2019-01-02 20:00] VITALS: BP 129/60; PULSE 72; RESP 18
[2019-01-03] MEDS: ACCU-CHEK XX SCH (01:15)
[2019-01-03 02:00] VITALS: BP 127/61; PULSE 69; RESP 18
[2019-01-03] MEDS: PANTOPRAZOLE (EC) 40 MG TAB PO SCH ×2 (06:14→18:09)
[2019-01-03] MEDS: CIPROFLOXACIN 500 MG TAB PO SCH (06:14)
[2019-01-03 07:37] VITALS: BP 136/61; PULSE 66; RESP 18
[2019-01-03] MEDS: INSULIN ASPART [NOVOLOG] 3 ML PEN SC SCH ×4 (07:48→21:00)
--- NOTE | 2019-01-03 08:37 | PN ---
Date/Time of Note Date/Time of Note DATE: 01/03/19 TIME: 08:37 Assessment/Plan VTE Prophylaxis Risk score (from Ns)>0 risk: 3 SCD applied (from Ns): Yes Pharmacological prophylaxis: NA/contraindicated Pharm contraindication: anticoag not tolerated Lines/Catheters [facility] Saline Lock Urinary Cath still in place: No Assessment/Plan Assessment/Plan 1. Symptomatic iron deficiency anemia- stable - Hgb stable and will require iron supplement upon discharge. no need for transfusion at this time - Fecal occult is negative - iron studies noted 2. Hypertension - Continue home meds 3. Diabetes mellitus - Insulin while house 4. Questionable UTI - UA noted and will continue short course of cipro. D/c today 5. Shoulder and abdominal burning - Worked up by her primary care physician, on gabapentin. Increased gabapentin to 300mg and will monitor for improvement. 6. Disposition - Hgb remains stable and if feeling better, will d/c home tomorrow Result Diagram: 01/03/19 0430 01/01/19 0503 Results 24hrs Laboratory Tests Test 01/02/19 09:13 01/02/19 13:21 01/02/19 17:25 01/02/19 20:31 White Blood Count 7.2 Red Blood Count 4.50 Hemoglobin 8.7 L Hematocrit 31.3 L Mean Corpuscular Volume 69.6 L Mean Corpuscular 19.3 L Hemoglobin Mean Corpuscular 27.8 L Hemoglobin Concent Red Cell Distribution 25.2 H Width Platelet Count 263 Mean Platelet Volume 8.3 Immature Granulocytes % 0.600 H Neutrophils % 62.2 Lymphocytes % 22.2 Monocytes % 8.1 Eosinophils % 5.9 Basophils % 1.0 Nucleated Red Blood 0.0 Cells % Immature Granulocytes # 0.040 H Neutrophils # 4.5 Lymphocytes # 1.6 Monocytes # 0.6 Eosinophils # 0.4 Basophils # 0.1 Nucleated Red Blood 0.0 Cells # Bedside Glucose 107 168 169 Test 01/03/19 04:30 01/03/19 07:48 White Blood Count 6.4 Red Blood Count 4.51 Hemoglobin 8.9 L Hematocrit 31.4 L Mean Corpuscular Volume 69.6 L Mean Corpuscular 19.7 L Hemoglobin Mean Corpuscular 28.3 L Hemoglobin Concent Red Cell Distribution 26.3 H Width Platelet Count 280 Mean Platelet Volume 8.7 Immature Granulocytes % 0.600 H Neutrophils % 51.3 Lymphocytes % 30.4 Monocytes % 10.4 Eosinophils % 6.2 Basophils % 1.1 Nucleated Red Blood 0.0 Cells % Immature Granulocytes # 0.040 H Neutrophils # 3.3 Lymphocytes # 2.0 Monocytes # 0.7 Eosinophils # 0.4 Basophils # 0.1 Nucleated Red Blood 0.0 Cells # Bedside Glucose 129 Subjective 24 Hr Interval Summary Free Text/Dictation Patient states shes still having discomfort with ambulation but thinks shell be fine by tomorrow. still with erythema and swelling in right antecubital fossa s/p blood draw. Exam/Review of Systems Exam Vitals Vital Signs Date Temp Pulse Resp B/P (MAP) Pulse Ox O2 O2 Flow FiO2 Time Delivery Rate 01/03/19 98.2 66 18 136/61 95 07:37 (86) 12/30/18 Room Air 20:30 Intake and Output 01/02/19 01/02/19 01/03/19 1414:59 22:59 06:59 IntakeIntake Total 1280 ml 1520 ml BalanceBalance 1280 ml 1520 ml Exam General: Patient is sitting in chair at bedside and answers questions appropriately Neck: Supple, nontender, midline Respiratory: Clear to auscultation bilaterally. no wheezing Cardiovascular: regular rate and rhythm, no obvious murmurs Gastrointestinal: soft, non-tender to palpation, bowel sounds heard. Ext: Moves all extremities spontaneously. mild discomfort with palpation of lower extremities Skin: No new skin lesions Results Results 24hrs Laboratory Tests Test 01/02/19 09:13 01/02/19 13:21 01/02/19 17:25 01/02/19 20:31 White Blood Count 7.2 Red Blood Count 4.50 Hemoglobin 8.7 L Hematocrit 31.3 L Mean Corpuscular Volume 69.6 L Mean Corpuscular 19.3 L Hemoglobin Mean Corpuscular 27.8 L Hemoglobin Concent Red Cell Distribution 25.2 H Width Platelet Count 263 Mean Platelet Volume 8.3 Immature Granulocytes % 0.600 H Neutrophils % 62.2 Lymphocytes % 22.2 Monocytes % 8.1 Eosinophils % 5.9 Basophils % 1.0 Nucleated Red Blood 0.0 Cells % Immature Granulocytes # 0.040 H Neutrophils # 4.5 Lymphocytes # 1.6 Monocytes # 0.6 Eosinophils # 0.4 Basophils # 0.1 Nucleated Red Blood 0.0 Cells # Bedside Glucose 107 168 169 Test 01/03/19 04:30 01/03/19 07:48 White Blood Count 6.4 Red Blood Count 4.51 Hemoglobin 8.9 L Hematocrit 31.4 L Mean Corpuscular Volume 69.6 L Mean Corpuscular 19.7 L Hemoglobin Mean Corpuscular 28.3 L Hemoglobin Concent Red Cell Distribution 26.3 H Width Platelet Count 280 Mean Platelet Volume 8.7 Immature Granulocytes % 0.600 H Neutrophils % 51.3 Lymphocytes % 30.4 Monocytes % 10.4 Eosinophils % 6.2 Basophils % 1.1 Nucleated Red Blood 0.0 Cells % Immature Granulocytes # 0.040 H Neutrophils # 3.3 Lymphocytes # 2.0 Monocytes # 0.7 Eosinophils # 0.4 Basophils # 0.1 Nucleated Red Blood 0.0 Cells # Bedside Glucose 129 Medications Medication Current Medications IV Flush (NS 3 ml) 3 ml PER PROTOCOL IV ; Start 12/29/18 at 17:30 Ondansetron HCl (Zofran Inj) 4 mg Q6H PRN IV NAUSEA/VOMITING; Start 12/29/18 at 17:30 Acetaminophen (Tylenol Tab) 650 mg Q6H PRN PO .PAIN 1-3 OR TEMP Last administered on 12/30/18 08:46; Admin Dose 650 MG; Start 12/29/18 at 17:30 Acetaminophen/ Hydrocodone Bitart ([place] (5/325)) 1 tab Q6H PRN PO .PAIN 4-6 Last administered on 01/01/19 08:03; Admin Dose 1 TAB; Start 12/29/18 at 17:30 Losartan Potassium (Cozaar) 100 mg DAILY PO Last administered on 01/02/19 08:21; Admin Dose 100 MG; Start 12/30/18 at 09:00 Pantoprazole (Protonix Tab) 40 mg BID@06,18 PO Last administered on 01/03/19 06:14; Admin Dose 40 MG; Start 12/29/18 at 18:00 Diagnostic Test (Pha) (Accu-Chek) 1 ea 02 XX ; Start 12/30/18 at 02:00 Insulin Aspart (Novolog Insulin Pen) NOVOLOG *MILD* ALGORITHM WITH MEALS BEDTIME SC Last administered on 01/02/19 17:31; Admin Dose 1 UNIT; Start 12/29/18 at 18:00 Miscellaneous Information 1 ea NOTE XX ; Start 12/29/18 at 18:00 Glucose (Glutose) 15 gm Q15M PRN PO DECREASED GLUCOSE; Start 12/29/18 at 18:00 Glucose (Glutose) 22.5 gm Q15M PRN PO DECREASED GLUCOSE; Start 12/29/18 at 18:00 Dextrose (D50w Syringe) 25 ml Q15M PRN IV DECREASED GLUCOSE; Start 12/29/18 at 18:00 Dextrose (D50w Syringe) 50 ml Q15M PRN IV DECREASED GLUCOSE; Start 12/29/18 at 18:00 Glucagon (Glucagen) 1 mg Q15M PRN IM DECREASED GLUCOSE; Start 12/29/18 at 18:00 Glucose (Glutose) 15 gm Q15M PRN BUCCAL DECREASED GLUCOSE; Start 12/29/18 at 18:00 Amlodipine Besylate (Norvasc) 10 mg DAILY PO Last administered on 01/02/19 08:20; Admin Dose 10 MG; Start 12/31/18 at 09:00 Hydralazine HCl (Apresoline) 10 mg Q4H PRN IV sbp >160 Last administered on 12/31/18at 16:40; Admin Dose 10 MG; Start 12/30/18 at 14:00 Ciprofloxacin (Cipro) 500 mg BID@,18 PO Last administered on 01/03/19at 06:14; Admin Dose 500 MG; Start 12/31/18 at 18:00; Stop 01/03/19 at 17:59 Sucralfate (Carafate) 1 gm QID PO Last administered on 01/02/19 20:31; Admin Dose 1 GM; Start 01/01/19 at 09:00 Gabapentin (Neurontin) 300 mg TID PO Last administered on 01/02/19 20:31; Admin Dose 300 MG; Start 01/01/19 at 21:00 SHALINI WALTERS MD Jan 03, 2019 08:37
[2019-01-03] MEDS: SUCRALFATE 1 GM TAB PO SCH ×4 (09:00→21:34)
[2019-01-03] MEDS: GABAPENTIN 300 MG CAP PO SCH ×3 (09:37→21:34)
[2019-01-03] MEDS: AMLODIPINE 10 MG TAB PO SCH (09:37)
[2019-01-03] MEDS: LOSARTAN 50 MG TAB PO SCH (09:38)
[2019-01-03 13:47] VITALS: BP 134/71; PULSE 63; RESP 18
[2019-01-03 20:00] VITALS: BP 125/68; PULSE 71; RESP 18
[2019-01-04 02:00] VITALS: BP 109/61; PULSE 74; RESP 18
[2019-01-04] MEDS: ACCU-CHEK XX SCH (02:00)
[2019-01-04] MEDS: PANTOPRAZOLE (EC) 40 MG TAB PO SCH ×2 (05:28→16:45)
[2019-01-04 07:37] VITALS: BP 156/66; PULSE 64; RESP 18
[2019-01-04] MEDS: SUCRALFATE 1 GM TAB PO SCH ×3 (07:51→16:45)
[2019-01-04] MEDS: GABAPENTIN 300 MG CAP PO SCH ×3 (07:51→16:45)
[2019-01-04] MEDS: INSULIN ASPART [NOVOLOG] 3 ML PEN SC SCH ×3 (07:51→18:00)
[2019-01-04] MEDS: AMLODIPINE 10 MG TAB PO SCH (07:52)
[2019-01-04] MEDS: LOSARTAN 50 MG TAB PO SCH (07:52)
--- NOTE | 2019-01-04 09:03 | PN ---
Date/Time of Note Date/Time of Note DATE: 01/04/19 TIME: 09:03 Assessment/Plan VTE Prophylaxis Risk score (from Ns)>0 risk: 3 SCD applied (from Nsg): Yes Pharmacological prophylaxis: NA/contraindicated Pharm contraindication: low risk/ambulating Lines/Catheters IV Catheter Type (from Nrs): Saline Lock Urinary Cath still in place: No Assessment/Plan Assessment/Plan 1. Symptomatic iron deficiency anemia- stable - Hgb stable and will require iron supplement upon discharge. no need for transfusion at this time - Fecal occult is negative - iron studies noted 2. Hypertension - Continue home meds 3. Diabetes mellitus - Insulin while house 4. Questionable UTI - UA noted and completed course of antibiotics 5. Shoulder and abdominal burning - Worked up by her primary care physician, on gabapentin. Continue on gabapentin 300mg TID 6. Disposition - Medically stable for discharge home Result Diagram: 01/03/19 0430 01/01/19 0503 Results 24hrs Laboratory Tests Test 01/03/19 12:35 01/03/19 17:44 01/03/19 21:35 01/04/19 07:50 Bedside Glucose 116 147 147 136 Subjective 24 Hr Interval Summary Free Text/Dictation Patient states shes feeling better and denies any acute issues. States shes ready for discharge home. No acute overnight events. Exam/Review of Systems Exam Vitals Vital Signs Date Temp Pulse Resp B/P (MAP) Pulse Ox O2 O2 Flow FiO2 Time Delivery Rate 01/04/19 98.0 64 18 156/66 95 07:37 (96) Intake and Output 01/03/19 01/03/19 01/04/19 1515:00 23:00 07:00 IntakeIntake Total 2440 ml 1560 ml BalanceBalance 2440 ml 1560 ml Exam General: Patient is sitting in chair at bedside and answers questions a ppropriately Neck: Supple, nontender, midline Respiratory: Clear to auscultation bilaterally. no wheezing Cardiovascular: regular rate and rhythm, no obvious murmurs Gastrointestinal: soft, non-tender to palpation, bowel sounds heard. Ext: Moves all extremities spontaneously. mild discomfort with palpation of lower extremities Skin: No new skin lesions Results Results 24hrs Laboratory Tests Test 01/03/19 12:35 01/03/19 17:44 01/03/19 21:35 01/04/19 07:50 Bedside Glucose 116 147 147 136 Medications Medication Current Medications IV Flush (NS 3 ml) 3 ml PER PROTOCOL IV ; Start 12/29/18 at 17:30 Ondansetron HCl (Zofran Inj) 4 mg Q6H PRN IV NAUSEA/VOMITING; Start 12/29/18 at 17:30 Acetaminophen (Tylenol Tab) 650 mg Q6H PRN PO .PAIN 1-3 OR TEMP Last administered on 12/30/18at 08:46; Admin Dose 650 MG; Start 12/29/18 at 17:30 Acetaminophen/ Hydrocodone Bitart ([place] (5/325)) 1 tab Q6H PRN PO .PAIN 4-6 Last administered on 01/01/19 08:03; Admin Dose 1 TAB; Start 12/29/18 at 17:30 Losartan Potassium (Cozaar) 100 mg DAILY PO Last administered on 01/04/19at 07:52; Admin Dose 100 MG; Start 12/30/18 at 09:00 Pantoprazole (Protonix Tab) 40 mg BID@06,18 PO Last administered on 01/04/19at 05:28; Admin Dose 40 MG; Start 12/29/18 at 18:00 Diagnostic Test (Pha) (Accu-Chek) 1 ea 02 XX ; Start 12/30/18 at 02:00 Insulin Aspart (Novolog Insulin Pen) NOVOLOG *MILD* ALGORITHM WITH MEALS BEDTIME SC Last administered on 01/03/19at 18:08; Admin Dose 1 UNIT; Start 12/29/18 at 18:00 Miscellaneous Information 1 ea NOTE XX ; Start 12/29/18 at 18:00 Glucose (Glutose) 15 gm Q15M PRN PO DECREASED GLUCOSE; Start 12/29/18 at 18:00 Glucose (Glutose) 22.5 gm Q15M PRN PO DECREASED GLUCOSE; Start 12/29/18 at 18:00 Dextrose (D50w Syringe) 25 ml Q15M PRN IV DECREASED GLUCOSE; Start 12/29/18 at 18:00 Dextrose (D50w Syringe) 50 ml Q15M PRN IV DECREASED GLUCOSE; Start 12/29/18 at 18:00 Glucagon (Glucagen) 1 mg Q15M PRN IM DECREASED GLUCOSE; Start 12/29/18 at 18:00 Glucose (Glutose) 15 gm Q15M PRN BUCCAL DECREASED GLUCOSE; Start 12/29/18 at 18:00 Amlodipine Besylate (Norvasc) 10 mg DAILY PO Last administered on 01/04/19 07:52; Admin Dose 10 MG; Start 12/31/18 at 09:00 Hydralazine HCl (Apresoline) 10 mg Q4H PRN IV sbp >160 Last administered on 12/31/18at 16:40; Admin Dose 10 MG; Start 12/30/18 at 14:00 Sucralfate (Carafate) 1 gm QID PO Last administered on 01/04/19 07:51; Admin D ose 1 GM; Start 01/01/19 at 09:00 Gabapentin (Neurontin) 300 mg TID PO Last administered on 01/04/19 07:51; Admin Dose 300 MG; Start 01/01/19 at 21:00 SHALINI WALTERS MD Jan 04, 2019 09:03
[2019-01-04] MEDS ORDERED: AMLO-147 PO (12:39)
[2019-01-04] MEDS ORDERED: PANT40TA4 PO (12:39)
[2019-01-04] MEDS ORDERED: GABA300C16 PO (12:39)
[2019-01-04] MEDS ORDERED: FERR325T5 PO (12:42)
--- NOTE | 2019-01-04 12:44 | PDOCDIS ---
Discharge Instructions DIAGNOSIS Discharge Diagnosis 1. Symptomatic iron deficiency anemia- stable 2. Hypertension 3. Diabetes mellitus 4. UTI- treated 5. Lower extremity neuropathy CONDITION [id number] Patient Condition: [id number] Stable HOME CARE INSTRUCTIONS: [id number] Diet Instructions: [id number] Low Fat /Cholesterol FOLLOW UP/APPOINTMENTS Follow-up Plan 1. Follow up with your primary care physician in 1 week 2. You will need to continue taking iron supplementation given you have iron deficiency anemia 3. Continue taking Pantoprazole twice a day for 1 months then decrease to daily to help with abdominal symptoms 4. Take Gabapentin 300mg three times a day to help with your leg discomfort 5. Your Amlodipine was increased to 10mg for better blood pressure control 6. If experiencing any concerning symptoms, please go to your nearest emergency department 1. seguimiento con michael mdico de atencin primaria en 1 semana 2. usted tendr que seguir tomando suplementos de dejuan dado que tiene anemia por deficiencia de dejuan 3. Contine tomando pantoprazol dos veces al da lee ann 1 mes y luego disminuya a diario para ayudar con los sntomas abdominales 4. [place] gabapentin 300mg anel veces al da para ayudar con la molestia de la pierna 5. michael amlodipino aument a 10mg para un mejor control de la presin arterial 6. Si experimenta algn sntoma relacionado, por favor vaya a michael Departamento de emergencias SHALINI Tay MD Jan 04, 2019 12:44
[2019-01-04 12:56] VITALS: BP 143/65; PULSE 69; RESP 18
--- NOTE | 2019-01-04 16:37 | DS ---
Date/Time of Note Date/Time of Note DATE: 01/04/19 TIME: 16:32 Discharge Summary Admission/Discharge Info Admit Date/Time Dec 29, 2018 at 17:43 Discharge Date/Time 01/04/19 Discharge Diagnosis 1. Symptomatic iron deficiency anemia- stable 2. Hypertension 3. Diabetes mellitus 4. UTI- treated 5. Lower extremity neuropathy Patient Condition: Stable Hx of Present Illness Patient is a female with a past medical history significant for hypertension, diabetes mellitus and peripheral neuropathy who presents to [facility] after being sent by her outpatient physician for severe anemia. Patient states that she has had this burning sensation in her shoulders bilaterally as well as her stomach for approximately 8 months. Her primary care doctor diagnosed with peripheral neuropathy secondary to diabetes mellitus and is treating her with gabapentin for the symptoms. Patient states that the symptoms have improved a little bit but has still not fully resolved. Otherwise patient also states that for the past 8 months she has felt generally weak. As far as acute symptoms that are none, patient states that she has been feeling this current state for the past 8 months. Patient denies acute chest pain, shortness of breath, headache, abdominal pain, leg pain. But she does state that she has this burning sensation in her abdomen as well as her shoulders. Hospital Course Patient was admitted and worked up for symptomatic anemia. She was transfused in the ED and iron levels as well as FOBT were ordered. Patient was found with negative FOBT and iron levels were low. Patient was given IV iron with improvement of hemoglobin levels following transfusion and iron replacement. Patients gabapentin dose was increased as well given peripheral neuropathy which is chronic. Patients presenting symptoms improved significantly and patient progressed well with physical therapy. HHPT was arranged by case management to begin after discharge. Patient was found with +UA and treated with a short course of antibiotics. Patient was discharged home in good condition with home health services. Home Meds Active Scripts Ferrous Sulfate (Ferrous Sulfate) 325 Mg Tablet., 325 MG PO DAILY for 30 Days, #30 TAB 6 Refills Prov:SHALINI WALTERS MD 01/04/19 Pantoprazole* (Pantoprazole*) 40 Mg Tablet., 40 MG PO BID@06,18 for 30 Days, #60 TAB 4 Refills Prov:SHALINI WALTERS MD 01/04/19 Gabapentin* (Gabapentin*) 300 Mg Capsule, 300 MG PO TID for 30 Days, #90 CAP 9 Refills Prov:SHALINI WALTERS MD 01/04/19 Amlodipine Besylate* (Amlodipine Besylate*) 10 Mg Tablet, 10 MG PO DAILY for 30 Days, #30 TAB 9 Refills Prov:SHALINI WALTERS MD 01/04/19 Reported Medications Metformin Hcl* (Metformin Hcl*) 500 Mg Tablet, 500 MG PO WITH BREAKFAST DINNE, #60 TAB 12/29/18 Losartan Potassium* (Losartan Potassium*) 100 Mg Tablet, 100 MG PO DAILY, TAB 12/29/18 Calcium Carbonate-Vitamin D3 (Calcium 500 + D Tablet) 1 Each Tablet, 1 TAB PO DAILY, TAB 12/29/18 Discontinued Reported Medications Gabapentin* (Gabapentin*) 100 Mg Capsule, 100 MG PO TID, #90 CAP 12/29/18 Amlodipine Besylate* (Norvasc*) 5 Mg Tablet, 5 MG PO DAILY, TAB 12/29/18 Follow-up Plan 1. Follow up with your primary care physician in 1 week 2. You will need to continue taking iron supplementation given you have iron deficiency anemia 3. Continue taking Pantoprazole twice a day for 1 months then decrease to daily to help with abdominal symptoms 4. Take Gabapentin 300mg three times a day to help with your leg discomfort 5. Your Amlodipine was increased to 10mg for better blood pressure control 6. If experiencing any concerning symptoms, please go to your nearest emergency department 1. seguimiento con michael mdico de atencin primaria en 1 semana 2. usted tendr que seguir tomando suplementos de dejuan dado que tiene anemia por deficiencia de dejuan 3. Contine tomando pantoprazol dos veces al da lee ann 1 mes y luego disminuya a diario para ayudar con los sntomas abdominales 4. Albia gabapentin 300mg anel veces al da para ayudar con la molestia de la pierna 5. michael amlodipino aument a 10mg para un mejor control de la presin arterial 6. Si experimenta algn sntoma relacionado, por favor vaya a michael Departamento de emergencias ms catrachito Primary Care Provider Not On Staff Doctor Time spent on discharge: > 30 minutes Pending Labs Laboratory Tests Test 01/03/19 17:44 01/03/19 21:35 01/04/19 07:50 01/04/19 12:31 Bedside 147 147 136 132 Glucose mg/dL (70-220) mg/dL (70-220) mg/dL (70-220) mg/dL (70-220) SHALINI WALTERS MD Jan 04, 2019 16:37
== END 2019-01-04 20:25 | disposition home health service (06) | DRG 812 ==
LOC: E/R 15:02 → 2NE 17:43
PROVIDERS: ADMIT Internal Medicine; ATTEND Internal Medicine
PROC: 30233N1 Transfusion of Nonautologous Red Blood Cells into Peripheral Vein, Percutaneous Approach (ICD-10-PCS; principal; 2018-12-29)
DX: D50.9 Iron deficiency anemia, unspecified (principal); N39.0 Urinary tract infection, site not specified; E11.42 Type 2 diabetes mellitus with diabetic polyneuropathy; I10 Essential (primary) hypertension; Z79.4 Long term (current) use of insulin
CPT/HCPCS: 36430; 80048; 80053; 80061; 81001; 82270; 82728; 82962; 83036; 83540; 83735; 84100; 84443; 84484; 85025; 85045; 85610; 85730; 86850; 86900; 86901; 86920; 90686; 93005; 97116; 97161; 97530; J0360; J0744; J1815; J2916; J7030; J7040; P9016